=== PATIENT | male | born 1995 | race Caucasian/White ===

== ENCOUNTER 2018-07-27 03:59 | Emergency (ER) | payer OTHER ==
[2018-07-27 06:48] LABS: ABSOLUTE EOSINOPHILS # (AUTO) 0.3 10^3/uL (0.0-0.6); ABSOLUTE MONOCYTES (AUTO) 0.5 10^3/uL (0.1-1.4); EOSINOPHILS % (AUTO) 3.6 % (0-6); TOTAL CELLS COUNTED % (AUTO) 100 %
[2018-07-27 06:54] LABS: ALANINE AMINOTRANSFERASE 26 U/L (21-72); ALBUMIN 4.9 g/dL (3.5-5.0); ALCOHOL 152 mg/dL (NONE DETECTED); ALKALINE PHOSPHATASE 92 U/L (38-126); ANION GAP 12 (5-19); ASPARTATE AMINO TRANSFERASE 27 U/L (17-59); BILIRUBIN,DIRECT 0.2 mg/dL (0.0-0.4); BILIRUBIN,TOTAL 0.4 mg/dL (0.2-1.3); BLOOD UREA NITROGEN 11 mg/dL (7-20); CALCIUM 9.6 mg/dL (8.4-10.2); CARBON DIOXIDE 26 mmol/L (22-30); CHLORIDE 109 mmol/L (98-107); GLUCOSE 95 mg/dL (75-110); POTASSIUM 3.9 mmol/L (3.6-5.0); SODIUM 147.3 mmol/L (137-145); TOTAL PROTEIN 7.6 g/dL (6.3-8.2)
[2018-07-27 06:56] LABS: ABSOLUTE BASOPHILS # (AUTO) 0.1 10^3/uL (0.0-0.2); ABSOLUTE LYMPHOCYTES (AUTO) 2.7 10^3/uL (0.5-4.7); ABSOLUTE NEUT (AUTO) 3.7 10^3/uL (1.7-8.2); BASOPHILS % (AUTO) 0.8 % (0-2); HEMATOCRIT 48.1 % (37.9-51.0); HEMOGLOBIN 16.6 g/dL (13.5-17.0); LYMPHOCYTES % (AUTO) 37.2 % (13-45); MEAN CORPUSCULAR HEMOGLOBIN 32.2 pg (27.0-33.4); MEAN CORPUSCULAR HGB CONC 34.6 g/dL (32.0-36.0); MEAN CORPUSCULAR VOLUME 93 fl (80-97); PLATELET COUNT 284 10^3/uL (150-450); RED BLOOD COUNT 5.17 10^6/uL (4.35-5.55); RED CELL DISTRIBUTION WIDTH 13.4 % (11.5-14.0); SEGMENTED NEUTROPHILS % (AUTO) 51.4 % (42-78); WHITE BLOOD COUNT 7.2 10^3/uL (4.0-10.5)
[2018-07-27 07:00] LABS: ACETAMINOPHEN < 10 ug/mL (10-30); SALICYLATE < 1.0 mg/dL (2.0-20.0)
--- NOTE | 2018-07-27 07:21 | ER Document Report ---
ED General - General TRAVEL OUTSIDE OF THE [place] IN LAST 30 DAYS: No <NIVIA MONTEZ - Last Filed: 07/27/18 15:37> <JUDY VICENTE - Last Filed: 07/28/18 08:53> <EFREN LAZARO - Last Filed: 07/28/18 09:35> - General Chief Complaint: Suicidal Ideation Stated Complaint: PSYCH EVAL Time Seen by Provider: 07/27/18 06:26 Primary Care Provider: Yessenia Newby [Outside] - Follow up in 3-5 days EFREN BURGOS DO [Primary Care Provider] - Follow up as needed - HPI Notes: Patient presents emergency department for evaluation. IVC papers have been filed. Evidently the patient was drinking last night. He states to me that he sent a message to his sister. He states that it "occurred to me that my best friend would be too busy selling drugs to help me plan my ." He states he wanted his wishes to be known in regards to his , so we sent his sister message regarding this. He states that she mistakenly believe that to be a threat of suicide. According to nursing, the patient actually sent pictures to his sister with "tape wrapped around his throat." He was threatening to strangle himself. The patient denies this to me. He denies any suicidal or homicidal ideation. Denies any visual or auditory hallucination. He admits that he did threaten suicide a proximal he 5 years ago. He was hospitalized. H e states he is currently employed, looking forward to getting back to his school work. (NIVIA MONTEZ) - Related Data Allergies/Adverse Reactions: No Known Allergies Allergy (Verified 07/27/18 04:08) Past Medical History - General Information source: Patient - Social History Smoking Status: Current Every Day Smoker Chew tobacco use (# tins/day): No Frequency of alcohol use: Occasional Drug Abuse: None Family History: None Patient has suicidal ideation: Yes Patient has homicidal ideation: No Renal/ Medical History: Denies: Hx Peritoneal Dialysis Psychiatric Medical History: Reports: Hx Anxiety, Hx Attention Deficit Hyperactivity Disorder, Hx Depression Past Surgical History: Reports: Hx Oral Surgery - Immunizations Hx Diphtheria, Pertussis, Tetanus Vaccination: Yes <NIVIA MONTEZ - Last Filed: 07/27/18 15:37> Review of Systems - Review of Systems Constitutional: No symptoms reported EENT: No symptoms reported Cardiovascular: No symptoms reported Respiratory: No symptoms reported Gastrointestinal: No symptoms reported Genitourinary: No symptoms reported Musculoskeletal: No symptoms reported Skin: No symptoms reported Neurological/Psychological: See HPI <NIVIA MONTEZ - Last Filed: 07/27/18 15:37> Physical Exam <NIVIA MONTEZ - Last Filed: 07/27/18 15:37> - Vital signs Vitals: Temp Pulse Resp BP Pulse Ox 97.9 F 60 20 131/80 H 99 07/27/18 04:39 07/27/18 04:39 07/27/18 04:39 07/27/18 04:39 07/27/18 04:39 - Notes Notes: Vital signs reviewed, please refer to chart. Patient is normocephalic, atraumatic. Pupils equal round, reactive to light. Neck is supple without m eningismus. Heart is regular rate and rhythm. Lungs are clear to auscultation bilaterally. Abdomen is soft, nontender, normoactive bowel sounds throughout. Extremities without cyanosis, clubbing, edema. Peripheral pulses are equal. Skin is warm and dry. Patient is awake, alert, neurological exam is nonfocal. Affect is normal. Makes good eye contact. (STEVE MONTEZSARAH Parada) Course - Laboratory Result Diagrams: 07/27/18 04:50 07/27/18 04:50 <STEVE MONTEZSARAH Karma - Last Filed: 07/27/18 15:37> - Laboratory Result Diagrams: 07/27/18 04:50 07/27/18 04:50 <JUDY VICENTE - Last Filed: 07/28/18 08:53> - Laboratory Result Diagrams: 07/27/18 04:50 07/27/18 04:50 <EFREN LAZARO - Last Filed: 07/28/18 09:35> - Re-evaluation Re-evalutation: 07/27/18 07:20 Patient presents emergency department for evaluation. The story that he tells me is significantly different from the one IVC paperwork. Awaiting psych input. 07/27/18 11:55 Patient is stable here in the ED. Still awaiting urinalysis and tox screen. E valuated by psych, there is concerns about personality disorder. Also some concerns that the patient is not being entirely forthcoming. He remained stable, medical clearance will come through once drug screen is obtained. 07/27/18 12:37 Patient's urine drug screen is interestingly negative for amphetamines, despite being prescribed Vyvanse. It is positive for THC. At this point patient is medically cleared. Defer to psych for disposition. 07/27/18 15:37 Patient's negative drug screen prompted him to reveal that he (NIVIA MONTEZ) - Vital Signs Vital signs: Temp Pulse Resp BP Pulse Ox 97.9 F 60 20 131/80 H 99 07/27/18 04:39 07/27/18 04:39 07/27/18 04:39 07/27/18 04:39 07/27/18 04:39 - Laboratory Laboratory results interpreted by me: 07/27/18 07/27/18 04:50 11:55 Sodium 147.3 H Chloride 109 H Urine Urobilinogen 4.0 H Salicylates < 1.0 L Acetaminophen < 10 L Discharge <NIVIA MONTEZ - Last Filed: 07/27/18 15:37> <JUDY VICENTE - Last Filed: 07/28/18 08:53> <EFREN LAZARO - Last Filed: 07/28/18 09:35> - Discharge Clinical Impression: Suicidal ideation Condition: Stable Disposition: HOME, SELF-CARE Additional Instructions: You have been evaluated both medical and behavioral health teams and been deemed appropriate for discharge. Please continue following up with [facility] for both medication management and therapeutic services. You are encouraged to discuss with your therapist engaging in CBT or DBT. DEPRESSION: Your evaluation reveals that you have mental depression. While symptoms may be vague, they often include disturbance of sleep, fatigue, loss of appetite, and general loss of interest in life. While depression may be a side effect of drugs, or a reaction to a major change in your life, many cases have no known cause. If depression is acute, and related to a major loss in your life, you can expect it to clear completely with time. If you have been depressed a long time, are prone to repeated bouts of depression or low mood, or have been thinking of suicide, get help. Depression can be treated with anti-depressant medication and counselling. Long-term depression will often take a few weeks to clear, even with appropriate medication. Follow-up care is important. SUICIDAL IDEATION: Suicidal ideation is a common medical term for thoughts about suicide, which may be as detailed as a formulated plan, without the suicidal act itself. Although most people who undergo suicidal ideation do not commit suicide, some go on to make suicide attempts. The range of suicidal ideation varies greatly from fleeting to detailed planning, role playing, and unsuccessful attempts. While thoughts about suicide are common, most people do not carry out serious actions to commit suicide. Based upon your evaluation and discussion with you, we do not believe you are currently at risk to act upon your thoughts of suicide. You have agreed to return to the Emergency Department, at any time, if you feel inclined to act upon your suicidal thoughts. FOLLOW-UP CARE: If you experience worsening or a significant change in your symptoms, notify the physician immediately or return to the Emergency Department at any time for re-evaluation. Referrals: EFREN BURGOS, DO [Primary Care Provider] - Follow up as needed Yessenia Newby [Outside] - Follow up in 3-5 days
[2018-07-27 12:16] LABS: APPEARANCE,URINE CLEAR; BILIRUBIN,URINE NEGATIVE (NEGATIVE); COLOR,URINE YELLOW; GLUCOSE, URINE NEGATIVE (NEGATIVE); KETONES,URINE NEGATIVE (NEGATIVE); LEUKOCYTE ESTERASE,URINE NEGATIVE (NEGATIVE); NITRITE,URINE NEGATIVE (NEGATIVE); PROTEIN,URINE NEGATIVE (NEGATIVE); URINE SPECIFIC GRAVITY 1.012
[2018-07-27 12:31] LABS: URINE AMPHETAMINES SCREEN NEGATIVE; URINE BARBITURATES SCREEN NEGATIVE; URINE BENZODIAZEPINES SCREEN NEGATIVE; URINE COCAINE SCREEN NEGATIVE; URINE MARIJUANA (THC) SCREEN UNCONFIRMED POSITIVE; URINE METHADONE SCREEN NEGATIVE; URINE PHENCYCLIDINE SCREEN NEGATIVE
--- NOTE | 2018-07-27 16:36 | PSYCHOLOGICAL NOTE ---
Psych Note - Psych Note Date seen by psych provider: 07/27/18 Time seen by psych provider: 07:45 Psych Note: Reason for consult:SI gesture Contact Permissions:Sister Tia Patient is a 22 yo male presenting to the ED via EMS for SI reportedly leaving a goodbye note which he would not show to EMS and texting his sister with goodbye's and a picture of himself with duct tape around his neck. ETOH upon arrival was 152 and positive for THC. Patient denies SI last night due to ETOH and denies current SI. He complains that his room mate is a drug dealer and he kicked him out and that made him think that he should tell someone about his end of life decisions since he was now alone. So, he reached out to his sister via text to relay his and beneficiary wishes. He relays that he was dx with ASD as a child because his parents want him to have "bogus diagnoses so they can hurt and control me"/ED staff are trying to hurt and control him/his medical doctors won't treat his hyperthyroidism until he has cancer and he can't get a referral for TSH check because of this. Patient endorses ADHD dx and denies Bipolar Disorder. 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 According to patient's sister, there is a family hx of bipolar DO on both sides with parents and grandparents. 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 Yesterday he wanted to talk about his , then later in the night he sent a text saying I love you/I'm sorry/goodbye. He next left a VM bury me in favorite clothes/ bye/ my life is ruined and I can't fix it/I'm going to choke myself while drunk so I won't feel. He is known to be "dramatic and emotional/is not stable emotionally and very paranoid of everyone and their intentions. Last night though, he seemed desperate and planned, less a manipulation. Patient is also known to be manipulative and if not getting what he wants, can be volatile and hostile. He has been stressed about papers at school recently and may not be doing well. His IEP from middle school showed high reading comprehension but inability to effectively articulate the written word. He is paranoid his parents manipulate his dx to harm him. Patient has no known prior attempts though has made gestures to get what he wants. He has a hx of cutting, alcohol abuse, xanax abuse. His friend and room mate reported that he was taking 3x the dose of his Vyvanse. This friend is not a drug dealer. Patient is alert and oriented x 4. Mood is irritable with congruent affect aeb patient is guarded, argumentative, and naif. Patient denies SI, HI, and AV/H, does not appear to be responding to internal stimuli. Paranoid delusions were noted aeb parents had him assessed and given bogus dx so they could harm him, medical doctor refuses to treat his hyperthyroidism until he has cancer, room mate is a drug dealer. Conversational speech was WNL for rate, tone, and prosody though naif/bordering on rude. Eye contact was well maintained. Thought processes were linear, organized. Intellectual abilities were estimated within the average range. Attention/concentration was WNL while, insight, judgment, and impulse control were poor. Diagnosis: 296.51 Bipolar Disorder, Mixed, Mild Autism Spectrum Disorder, per collateral report Attention Deficit Hyperactivity Disorder, per pt report Medication recommendations as per psychiatric provider, Dr. Jacob are as follows: Start Zyprexa 5mg twice daily start Cogentin 1mg daily Impression/Plan: Patient is recommended to remain under IVC for risk of harm to self and others aeb patient threatened suicide with a note last night while under the influence of alcohol and is currently untreated for bipolar disorder and is demonstrating agitation/irritability and paranoia associated with karen. Additionally, patient is reported by family to abuse his Vyvanse and so may be in withdrawal as his toxicology screen was negative for these substances. Patient is a 22 yo male with a hx of cutting who denies his making suicidal gestures last night despite evidence to the contrary. Plan is to hold overnight for medication stabilization, further observation and evaluation. Consulted Dr. Moy in the care and treatment of this patient and ED physician who is in agreement with disposition and recommendation.
[2018-07-27] MEDS: OLANZAPINE 5 MG TABLET PO SCH (18:33)
[2018-07-27] MEDS: BENZTROPINE MESYLATE 1 MG TABLET PO SCH (18:33)
[2018-07-27] MEDS ORDERED: ZOLPIDEM TARTRATE 5 MG TABLET PO SCH (22:00)
--- NOTE | 2018-07-28 08:48 | EKG REPORT ---
SEVERITY:- NORMAL ECG - SINUS RHYTHM ST ELEV, PROBABLE NORMAL EARLY REPOL PATTERN : Confirmed by: Juan Manuel Hernandes 28-Jul-2018 08:48:28
--- NOTE | 2018-07-28 09:46 | ER Document Report ---
Doctor's Note Notes: 07/28/18 09:44 Rounds: Chart reviewed. Patient interviewed. Patient with a history of bipolar disorder and autism. ADHD, as well. Here expressing suicidal thoughts when admitted, but denies having them now. Acknowledges he was drinking too much to alcohol. Lab studies showed an alcohol of 152. Positive marijuana on drug screen. Otherwise labs were normal. Vital signs are all normal. Patient appears to be medically stable for transfer or discharge. Geno Sterling MD
[2018-07-28] MEDS: OLANZAPINE 5 MG TABLET PO SCH (10:31)
[2018-07-28] MEDS: BENZTROPINE MESYLATE 1 MG TABLET PO SCH (10:31)
[2018-07-28 10:46] VITALS: BP 135/76
--- NOTE | 2018-07-28 12:02 | PSYCHOLOGICAL NOTE ---
Psych Note - Psych Note Date seen by psych provider: 07/28/18 Time seen by psych provider: 08:30 Psych Note: Reason for consult:SI gesture Contact Permissions:Father, Dmitri, at bedside per patient's request Patient is a 22 yo male presenting to the ED via EMS for SI reportedly leaving a goodbye note which he would not show to EMS and texting his sister with goodbye's and a picture of himself with duct tape around his neck. Check-in conducted with patient Patient denies any thoughts of wanting to harm himself or others. He reports concern about missing classes and having to drop out of school. Patient reports he is worked very hard to get where he is at and does not want to have to work back at raising his GPA again. He states that it took 6 months last time to try to fix his GPA. He continues to disclose that he has an outpatient mental health provider that he is worked with for over 10 years and would prefer any medication changes to be conducted through them as they know what he has been on. Clinician discussed substance abuse treatment options and provided psychoeducation on the concerns of being prescribed controlled substances when having a substance use history. Clinician spoke with patient's father who reports that the patient chronically reports of suicidal ideation; "normally I just ignore it because he says it so often and does not do anything." He disclosed that the patient was talking to his sister and he heard that there was some pictures but the sister states there was no pictures and was confused on where that information came from. He confirms that the patient's sister disclosed to him the information of suicidal ideation but again reports this is chronic for the patient when he is upset. He reports that currently the patient is very worried about his schoolwork as he has a paper due does not want to have to drop any classes. He requests permission to bring the patient's computer in so he can work on his schoolwork if he has to stay. He reports he believes the patient needs to stay away from alcohol however does not feel that any other drugs are an issue for the patient as he does see improvement when he is taking his medications as prescribed. No medication recommendations at this time; patient reports he has been working with [facility] for many years and would prefer any medication changes to come through them. Diagnosis: 296.51 Bipolar Disorder, Mixed, Mild Autism Spectrum Disorder, per collateral report Attention Deficit Hyperactivity Disorder, per pt report Impression/Plan: Patient is recommended for rescind of IVC and is cleared from acute psychiatric services. Patient no longer meets IVC criteria per [place] GS 122C. Patient denies thoughts of wanting harm himself. Patient's father reports patient has chronic suicidal ideation; however, denies patient has ever acted out on his thoughts or comments. He confirms he will be part of the patient's discharge plan i.e. no access to medications weapons and follows through with mental health recommendations. Patient demonstrates forward t hinking with concern of school and not wanting his GPA to drop because it takes so long to fix. Patient prefers to have any medication adjustments from his outpatient mental health provider; he was able to engage in an appropriate conversation that was rational and logical on with his thoughts and feeling surrounding medication changes. Patient is [facility] in the form of both medication management and therapeutic services. Patient reports he has an upcoming appointment on 08/26/2018; however, states he will call to see if there is earlier availability. Dr. Moy was consulted on the care and management of this patient; attending physicians in agreement with recommendations and disposition.
== END 2018-07-28 10:22 | disposition home or self-care (01) ==
LOC: ER 03:59
DX: R45.851 Suicidal ideations (principal); F17.200 Nicotine dependence, unspecified, uncomplicated
CPT/HCPCS: 36415; 80053; 80307; 81001; 85025; 93005; 93010; 99285

== ENCOUNTER 2019-01-19 13:33 | Emergency (ER) | payer OTHER ==
[2019-01-19] MEDS ORDERED: TRAMADOL HCL 50 MG TABLET PO ONE (13:57)
--- NOTE | 2019-01-19 14:41 | RADIOLOGY REPORT (SQ) ---
EXAM DESCRIPTION: KNEE RIGHT 4 VIEWS COMPLETED DATE/TIME: 01/19/2019 2:33 pm REASON FOR STUDY: fall COMPARISON: None. NUMBER OF VIEWS: Four views. TECHNIQUE: AP, lateral, and both oblique radiographic images acquired of the right knee. LIMITATIONS: None. FINDINGS: MINERALIZATION: Normal. BONES: No acute fracture or dislocation. No worrisome bone lesions. JOINT: No effusion. SOFT TISSUES: No soft tissue swelling. No radio-opaque foreign body. OTHER: No other significant finding. IMPRESSION: NEGATIVE STUDY OF THE RIGHT KNEE. NO RADIOGRAPHIC EVIDENCE OF ACUTE INJURY. TECHNICAL DOCUMENTATION: JOB ID: [id number] [employer]- All Rights Reserved Reading location - IP/workstation name: [email or web address]
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
[2019-01-19 15:57] VITALS: BP 117/66
== END 2019-01-19 15:56 | disposition home or self-care (01) ==
LOC: ER 13:33
DX: S60.511A Abrasion of right hand, initial encounter (principal); S80.01XA Contusion of right knee, initial encounter; V13.4XXA Pedal cycle driver injured in collision with car, pick-up truck or van in traffic accident, initial encounter; Y93.55 Activity, bike riding
CPT/HCPCS: 99283